=== PATIENT | female | born 1975 | race Caucasian/White ===

== ENCOUNTER 2016-08-26 18:00 | Emergency (ER) | payer OTHER ==
[2016-08-26 20:56] LABS: BASOPHIL % 0.2 % (0-2); PLATELET COUNT 217 x10^3mcL (130-400); RED CELL DISTRIBUTION WIDTH 12.6 % (11.5-14.5)
[2016-08-26 21:15] LABS: CALCIUM 8.9 mg/dL (8.5-10.1); CHLORIDE SERUM 108 mmol/L (98-107); CREATININE SERUM 0.9 mg/dL (0.6-1.0); GFR1 > 60 mL/min; GLUCOSE SERUM 101 mg/dL (74-106); SODIUM SERUM 146 mmol/L (136-145)
[2016-08-26 21:19] LABS: ALBUMIN 3.9 g/dL (3.4-5.0); ALKALINE PHOSPHATASE 67 U/L (46-116); ALT/SGPT 45 U/L (14-59); AMYLASE 56 U/L (25-115); AST/SGOT 38 U/L (15-37); BILIRUBIN TOTAL 0.68 mg/dL (0.20-1.00); LIPASE 172 IU/L (73-393); TOTAL PROTEIN, SERUM 7.8 g/dL (6.4-8.2)
[2016-08-27 02:50] VITALS: BP 110/64
== END 2016-08-27 02:50 | disposition home or self-care (01) ==
LOC: ED 18:00
PROVIDERS: Emergency Medicine Emergency Medical Services
DX: K20.0 Eosinophilic esophagitis (principal); Z79.3 Long term (current) use of hormonal contraceptives
CPT/HCPCS: J2270; J2405; Q0092; Q9967

== ENCOUNTER 2018-04-20 23:37 | Emergency (ER) | payer OTHER ==
[~2018-04-20] VITALS: Ht 172.7 cm; Wt 103.4 kg
[2018-04-20 23:44] VITALS: Ht 172.7 cm; Wt 103.4 kg
[2018-04-21 00:26] LABS: CARBON DIOXIDE 27.9 mmol/L (21-32); CREATININE SERUM 1.2 mg/dL (0.6-1.0); POTASSIUM SERUM 4.3 mmol/L (3.5-5.1)
[2018-04-21 00:37] LABS: BASOPHIL % 0.2 % (0-2); PLATELET COUNT 225 x10^3mcL (130-400); RED CELL DISTRIBUTION WIDTH 13.2 % (11.5-14.5)
[2018-04-21 00:38] LABS: ALBUMIN 3.7 g/dL (3.4-5.0); BILIRUBIN TOTAL 0.2 mg/dL (0.20-1.00); T4(THYROXINE) 5.7 ug/dL (4.7-13.3); TOTAL PROTEIN, SERUM 7.4 g/dL (6.4-8.2)
[2018-04-21 02:00] VITALS: BP 133/88
== END 2018-04-21 02:00 | disposition home or self-care (01) ==
LOC: ED 23:37
PROVIDERS: Emergency Medicine
DX: R00.2 Palpitations (principal); I10 Essential (primary) hypertension; Z88.8 Allergy status to other drugs, medicaments and biological substances
CPT/HCPCS: 36415; Q0092